=== PATIENT | female | born 1960 | race Caucasian/White ===

== ENCOUNTER 2023-08-27 10:07 | Emergency (ER) | payer BC ==
[2023-08-27 10:53] LABS: Absolute Eosinophils 0.2 K/uL (0-0.5); Absolute Monocytes 0.6 K/uL (0.1-1.3); Basophils % 0.7 % (0-1.3); Eosinophils % 3.2 % (0-4.4); Hematocrit 42.7 % (36.0-45.0); Hemoglobin 14.3 g/dL (12.0-15.0); Lymphocytes % 14.1 % (15.3-44.8); MCH 30.5 pg (27.0-35.0); MCHC 33.5 g/dL (32.0-36.0); MCV 91.1 fL (80-100); MPV 9.4 fL (7.6-11.3); Platelets 301 thou/uL (152-406); RBC Red Blood Cell Count 4.69 M/uL (3.86-4.86); Red Cell Distribution Width 14.1 % (12.1-15.2)
[2023-08-27] MEDS ORDERED: ONDANSETRON 4 MG/2 ML VIAL ONE (11:06)
[2023-08-27 11:42] LABS: ALT/SGPT 15 U/L (13-56); AST/SGOT < 10 U/L (15-37); Albumin 2.7 g/dL (3.4-5.0); Albumin/Globulin Ratio 0.7 (1.1-1.8); Alkaline Phosphatase 57 U/L (45-117); Anion Gap 9.4 mEq/L (5.0-15.0); BUN Blood Urea Nitrogen 11 mg/dL (7-18); Bicarbonate 27 mEq/L (21-32); Bilirubin Total 0.3 mg/dL (0.2-1.0); Globulin 3.8 g/dL (2.3-3.5); Glomerular Filtration Rate 96 ml/min (=/>90); Glucose Level 88 mg/dL (74-106); Lipase 18 U/L (13-75); Potassium 3.4 mEq/L (3.5-5.1); Protein, Total 6.5 g/dL (6.4-8.2); Sodium Level 138 mEq/L (136-145)
[2023-08-27 11:48] LABS: Urine Bacteria 20-50 /HPF (<20); Urine Bilirubin NEGATIVE (Negative); Urine Blood Negative (Negative); Urine Clarity Turbid (Clear); Urine Color Yellow (Yellow); Urine Culture Reflex Order NOT NEEDED; Urine Glucose NEGATIVE (Negative); Urine Ketones 1+ (Negative); Urine Microscopic Reflex YN ORDER UMIC; Urine Mucus 4+ /HPF (None Seen); Urine Nitrite NEGATIVE (Negative); Urine Protein 1+ (Negative); Urine Urobilinogen Normal (Normal)
[2023-08-27 11:49] LABS: Specific Gravity > 1.030 (1.005-1.030)
--- NOTE | 2023-08-27 12:00 | RAD REPORT ---
EXAM DESCRIPTION: CT - Abdomen Pelvis W Contrast - 08/27/2023 10:58 am CLINICAL HISTORY: ABD PAIN COMPARISON: No comparisons TECHNIQUE: Thin cut axial CT imaging of the abdomen and pelvis was performed following intravenous a dministration of 100 mL Isovue 300. Multiplanar reformats were generated and reviewed. All CT scans are performed using dose optimization technique as appropriate and may include automated exposure control or mA/KV adjustment according to patient size. FINDINGS: No suspicious findings in the lung bases. The liver, spleen, adrenal glands, and pancreas show no suspicious findings. Gallbladder and biliary tree are also without suspicious finding. Symmetric renal function is seen with no hydronephrosis or suspicious renal mass. No dilated bowel loops segmental mild wall thickening along the transverse colon the lesser extent th e ascending colon, although suboptimal distention limits evaluation. Mild wall thickening and mucosal hyperenhancement along the distal ileum, reaching the terminal ileum. No free air, free fluid or inf lammatory stranding. No hernia, mass or bulky lymphadenopathy. The urinary bladder is decompressed li miting evaluation. No suspicious bony findings. IMPRESSION: Segmental wall thickening of the proximal colon to the level of the transverse colon. Si milar changes with mild mucosal hyperenhancement of the distal ileum reaching the terminal ileum. Fin dings suggest infectious or inflammatory colitis.
[2023-08-27] MEDS ORDERED: Levofloxacin500mg IV 500 MG/100 ML BAG IV ONE (12:20)
--- NOTE | 2023-08-27 12:46 | ER ---
Nurse's Notes [facility] Name: Yola Gonzalez Age: 63 yrs Sex: Female : 1960 Arrival Date: 08/27/2023 Time: 10:07 Bed 5 Private MD: Diagnosis: Abdominal pain, colitis Presentation: 08/26 10:19 Chief complaint:. Chief complaint: Patient states: Nausea on/off since Thursday. Diarrhea nj1 since Thursday. No vomiting. Able to keep fluids down. Seen by PCP this morning, advised to come to ED for further evaluation and treatment. Coronavirus screen: Vaccine status:. Ebola Screen: Patient denies travel to an Ebola-affected area in the 21 days before illness onset. Initial Sepsis Screen: Does the patient meet any 2 criteria? HR > 90 bpm. No. Patient's initial sepsis screen is negative. Does the patient have a suspected source of infection? No. Patient's initial sepsis screen is negative. Risk Assessment: Do you want to hurt yourself or someone else? Patient reports no desire to harm self or others. Onset of symptoms was August 23, 2023. 10:19 Method Of Arrival: Ambulatory [facility] 10:19 Acuity: HALLIE 3 nj1 Triage Assessment: 10:23 General: Appears in no apparent distress. comfortable, Behavior is calm, cooperative, nj1 appropriate for age. Pain: Complains of pain in abdomen Pain currently is 3 out of 10 on a pain scale. Neuro: Level of Consciousness is awake, alert, obeys commands, Oriented to person, place, time, situation. Cardiovascular: Patient's skin is warm and dry. Respiratory: Airway is patent Respiratory effort is even, unlabored. GI: Reports upper abdominal pain, nausea. Historical: - Allergies: 10:23 No Known Allergies; nj1 - PMHx: 10:23 Hypertension; GERD; lichen sclerosus; nj1 - Immunization history:: Client reports receiving the 2nd dose of the Covid vaccine. - Infectious Disease History:: Denies. - Social history:: Smoking status: Patient denies any tobacco usage or history of. Screenin:55 [facility] ED Fall Risk Assessment (Adult) History of falling in the last 3 months, ko1 including since admission No falls in past 3 months (0 pts) Confusion or Disorientation No (0 pts) Intoxicated or Sedated No (0 pts) Impaired Gait No (0 pts) Mobility Assist Device Used No (0 pt) Altered Elimination No (0 pt) Score/Fall Risk Level 0 - 2 = Low Risk Oriented to surroundings, Maintained a safe environment, Educated pt \T\ family on fall prevention, incl call for assistance when getting out of bed, Assessed \T\ reinforced patient's understanding of fall precautions, Provided non-skid footwear, Hourly rounding (assess needs \T\ fall precautionary measures) done. Abuse screen: Denies threats or abuse. Denies injuries from another. Nutritional screening: No deficits noted. Tuberculosis screening: No symptoms or risk factors identified. Assessment: 10:55 General: Appears in no apparent distress. Behavior is calm, cooperative, appropriate ko1 for age. Pain: Complains of pain in abdomen. Neuro: No deficits noted. Cardiovascular: No deficits noted. Respiratory: No deficits noted. GI: Abdomen is flat, non-distended, Reports upper abdominal pain, nausea, vomiting. : No deficits noted. EENT: No deficits noted. Derm: No deficits noted. Musculoskeletal: No deficits noted. 12:03 Reassessment: Patient and/or family updated on plan of care and expected duration. Pain rs5 level reassessed. Patient is alert, oriented x 3, equal unlabored respirations, skin warm/dry/pink. Patient denies pain at this time. Patient states feeling better. 13:10 Reassessment: Patient and/or family updated on plan of care and expected duration. Pain rs5 level reassessed. Patient is alert, oriented x 3, equal unlabored respirations, skin warm/dry/pink. Patient states feeling better. Vital Signs: 10:19 BP 125 / 87; Pulse 99; Resp 16; Temp 97.9(O); Pulse Ox 100% ; Weight 54.43 kg; Height 5 nj1 ft. 6 in. ; Pain 3/10; 10:53 BP 132 / 71; Pulse 74; Resp 16; Pulse Ox 99% ; ko1 13:05 BP 128 / 77; Pulse 74; Resp 17; Pulse Ox 99% on R/A; rs5 10:19 Body Mass Index 19.37 (54.43 kg, 167.64 cm) [facility] 10:19 Pain Scale: Adult [facility] ED Course: 10:13 Patient arrived in ED. mr 10:20 Aldo Hernández MD is Attending Physician. sp3 10:23 Triage completed. nj1 10:23 Arm band placed on right wrist. nj1 10:36 Inga Becker, RN is Primary Nurse. ko1 10:49 Troponin High Sensitivity Sent. ko1 10:49 CBC with Diff Sent. ko1 10:49 CMP Sent. ko1 10:49 Lipase Sent. ko1 10:53 Patient has correct armband on for positive identification. Placed in gown. Bed in low ko1 position. Call light in reach. Side rails up X2. Provided Education on: labs/tests. 10:53 Initial lab(s) drawn, by me, sent to lab. EKG done, by ED staff, reviewed by Aldo Hernández MD. Inserted saline lock: 20 gauge in right antecubital area, using aseptic technique. Blood collected. 10:55 Client placed on continuous cardiac and pulse oximetry monitoring. NIBP monitoring ko1 applied. conveyor monitor on. Door closed. Noise minimized. Lights dimmed. Warm blanket given. Pillow given. 10:55 No provider procedures requiring assistance completed. ko1 10:58 CT Abd/Pelvis - IV Contrast Only In Process Unspecified. EDMS 13:10 IV discontinued, intact, bleeding controlled, No redness/swelling at site. Pressure rs5 dressing applied. Administered Medications: 11:10 Drug: Ondansetron IVP 4 mg IVP once; over 2 minutes Route: IVP; Site: right antecubital;rs5 11:25 Follow up: Response: No adverse reaction; Nausea is decreased ko1 12:20 Drug: levofloxacin IVPB 500 mg 100 ml IVPB once over 60 mins Volume: 100 ml; Route: nj1 IVPB; Infused Over: 60 mins; Site: right antecubital; 12:40 Follow up: Response: No adverse reaction rs5 Medication: 10:53 VIS not applicable for this client. ko1 Outcome: 12:46 Discharge ordered by . sp3 13:10 Discharged to home ambulatory, rs5 13:10 Condition: stable 13:10 Discharge instructions given to patient, family, Instructed on discharge instructions, follow up and referral plans. medication usage, Demonstrated understanding of instructions, follow-up care, medications, Prescriptions given X 3, 13:12 Patient left the ED. rs5 Signatures: Dispatcher [employer] EDCO Dyan Diaz, Reg Reg mr HernándezAldo MD MD sp3 Inga Becker RN RN ko1 Carlito Wagner RN RN rs5 Lucy Boyce RN RN nj1 Corrections: (The following items were deleted from the chart) 13:25 13:15 Reassessment: Patient and/or family updated on plan of care and expected rs5 duration. Pain level reassessed. Patient is alert, oriented x 3, equal unlabored respirations, skin warm/dry/pink. Patient states feeling better. rs5
--- NOTE | 2023-08-27 12:46 | EDPHYS ---
Physician Documentation [facility] Name: Yola Gonzalez Age: 63 yrs Sex: Female : 1960 Arrival Date: 08/27/2023 Time: 10:07 Bed 5 Private MD: ED Physician Aldo Hernández HPI: 08/26 10:53 This 63 yrs old Female presents to ER via Ambulatory with complaints of Nausea/Vomiting.sp3 10:53 63-year-old female with history of hypertension, GERD, currently on the final phase of sp3 Mounjaro sent by her PCP for epigastric abdominal pain for imaging. Patient states that her symptoms have been epigastric pain and nausea/vomiting for 4 days. She denies any chest pain, shortness of breath, diarrhea, lower abdominal pain, back pain, fever, or any other signs or symptoms on ROS at this time. Patient states she has lost significant weight.. Historical: - Allergies: 10:23 No Known Allergies; nj1 - PMHx: 10:23 Hypertension; GERD; lichen sclerosus; nj1 - Immunization history:: Client reports receiving the 2nd dose of the Covid vaccine. - Infectious Disease History:: Denies. - Social history:: Smoking status: Patient denies any tobacco usage or history of. ROS: 10:54 Constitutional: Negative for fever, chills, and weight loss, Eyes: Negative for injury, sp3 pain, redness, and discharge, ENT: Negative for injury, pain, and discharge, Neck: Negative for injury, pain, and swelling, Cardiovascular: Negative for chest pain, palpitations, and edema, Respiratory: Negative for shortness of breath, cough, wheezing, and pleuritic chest pain, Back: Negative for injury and pain, : Negative for injury, bleeding, discharge, and swelling, MS/Extremity: Negative for injury and deformity, Skin: Negative for injury, rash, and discoloration, Neuro: Negative for headache, weakness, numbness, tingling, and seizure, Psych: Negative for depression, anxiety, suicide ideation, homicidal ideation, and hallucinations, Allergy/Immunology: Negative for hives, rash, and allergies, Endocrine: Negative for neck swelling, polydipsia, polyuria, polyphagia, and marked weight changes, Hematologic/Lymphatic: Negative for swollen nodes, abnormal bleeding, and unusual bruising, 10:54 All other systems are negative, Exam: 10:54 Constitutional: This is a well developed, well nourished patient who is awake, alert, sp3 and in no acute distress. Head/Face: Normocephalic, atraumatic. Eyes: Pupils equal round and reactive to light, extra-ocular motions intact. Lids and lashes normal. Conjunctiva and sclera are non-icteric and not injected. Cornea within normal limits. Periorbital areas with no swelling, redness, or edema. ENT: Nares patent. No nasal discharge, no septal abnormalities noted. External auditory canals are clear. Oropharynx with no redness, swelling, or masses, exudates, or evidence of obstruction, uvula midline. Mucous membranes moist. Neck: Trachea midline, no thyromegaly or masses palpated, and no cervical lymphadenopathy. Supple, full range of motion without nuchal rigidity, or vertebral point tenderness. No Meningismus. Chest/axilla: Normal chest wall appearance and motion. Nontender with no deformity. No lesions are appreciated. Cardiovascular: Regular rate and rhythm with a normal S1 and S2. No gallops, murmurs, or rubs. Normal PMI, no JVD. No pulse deficits. Respiratory: Lungs have equal breath sounds bilaterally, clear to auscultation and percussion. No rales, rhonchi or wheezes noted. No increased work of breathing, no retractions or nasal flaring. Back: No spinal tenderness. No costovertebral tenderness. Full range of motion. Skin: Warm, dry with normal turgor. Normal color with no rashes, no lesions, and no evidence of cellulitis. MS/ Extremity: Pulses equal, no cyanosis. Neurovascular intact. Full, normal range of motion. Neuro: Awake and alert, GCS 15, oriented to person, place, time, and situation. Cranial nerves II-XII grossly intact. Motor strength 5/5 in all extremities. Sensory grossly intact. Cerebellar exam normal. Normal gait. Psych: Awake, alert, with orientation to person, place and time. Behavior, mood, and affect are within normal limits. 10:54 Abdomen/GI: Epigastric pain to palpation without peritoneal signs, rebound or guarding., 11:12 ECG was reviewed by the Attending Physician. EKG demonstrates normal sinus rhythm at 83 sp3 bpm with normal intervals, normal QRS, normal axis, normal ST/T segments without evidence of acute ischemia. Vital Signs: 10:19 BP 125 / 87; Pulse 99; Resp 16; Temp 97.9(O); Pulse Ox 100% ; Weight 54.43 kg; Height 5 nj1 ft. 6 in. ; Pain 3/10; 10:53 BP 132 / 71; Pulse 74; Resp 16; Pulse Ox 99% ; ko1 13:05 BP 128 / 77; Pulse 74; Resp 17; Pulse Ox 99% on R/A; rs5 10:19 Body Mass Index 19.37 (54.43 kg, 167.64 cm) nj1 10:19 Pain Scale: Adult nj1 MDM: 10:25 Patient medically screened. sp3 10:54 Data reviewed: vital signs, nurses notes, lab test result(s), EKG, radiologic studies. sp3 ED course: 63-year-old female with epigastric pain on Mounjaro. Differential diagnosis is broad and includes gastritis, colitis, biliary pathology including cholecystitis, cholelithiasis, biliary colic, pancreatitis, choledocholithiasis, among others. I am not highly suspicious for acute coronary syndrome, vascular pathology including aorta, HOT BREAD BAKER pathology, pathology or any other critical process including sepsis and shock. Workup will include CT scan of the abdomen pelvis, laboratory values, EKG and general supportive care. Ondansetron IV for nausea control. Disposition pending workup and patient course.. 12:45 ED course: Laboratory values within normal limits. CT demonstrates colitis ascending sp3 portion. Will put on antibiotics and have patient follow-up with PCP.. 08/26 10:33 Order name: CBC with Diff; Complete Time: 11:51 08/26 10:33 Order name: CMP; Complete Time: 11:51 08/26 10:33 Order name: Lipase; Complete Time: 11:51 3 08/26 10:33 Order name: Urinalysis w/ reflexes; Complete Time: 11:51 3 08/26 10:33 Order name: Troponin High Sensitivity; Complete Time: 11:51 08/26 10:33 Order name: CT Abd/Pelvis - IV Contrast Only; Complete Time: 12:17 08/26 10:33 Order name: EKG; Complete Time: 10:33 3 08/26 10:33 Order name: IV Saline Lock; Complete Time: 10:49 sp3 08/26 10:33 Order name: Labs collected and sent; Complete Time: 10:49 sp3 08/26 10:33 Order name: EKG - Nurse/Tech; Complete Time: 10:53 sp3 08/26 10:58 Order name: Labs - recollect needed: recollect green top please; Complete Time: 11:27 em1 Administered Medications: 11:10 Drug: Ondansetron IVP 4 mg IVP once; over 2 minutes Route: IVP; Site: right antecubital;rs5 11:25 Follow up: Response: No adverse reaction; Nausea is decreased ko1 12:20 Drug: levofloxacin IVPB 500 mg 100 ml IVPB once over 60 mins Volume: 100 ml; Route: nj1 IVPB; Infused Over: 60 mins; Site: right antecubital; 12:40 Follow up: Response: No adverse reaction rs5 Disposition Summary: 08/27/23 12:46 Discharge Ordered Notes: Location: Home sp3 Condition: Stable sp3 Diagnosis - Abdominal pain, colitis sp3 Followup: sp3 - With: Private Physician - When: Upon discharge from the Emergency Department - Reason: Continuance of care Discharge Instructions: - Discharge Summary Sheet sp3 - Colitis sp3 Forms: - Medication Reconciliation Form sp3 - Antibiotic Education sp3 - Prescription Opioid Use sp3 - Patient Portal Instructions sp3 - Leadership Thank You Letter sp3 Prescriptions: - Flagyl 500 mg Oral Tablet - take 1 tablet ORAL route every 8 hours for 10 days; 30 tablet; Refills: 0, sp3 Product Selection Permitted - Tramadol 50 mg Oral Tablet - take 1 tablet ORAL route every 8 hours as needed; 12 tablet; Refills: 0, sp3 Product Selection Permitted - levofloxacin 500 mg Oral tablet - take 1 tablet ORAL route once daily for 7 days; 7 tablet; Refills: 0, Product sp3 Selection Permitted Signatures: Dispatcher [employer] Feroz Alvarez em1 Aldo Hernández MD MD sp3 Carlito Wagner RN RN rs5 Lucy Boyce RN RN nj1 Inga Becker RN ko1 Corrections: (The following items were deleted from the chart) 10:33 10:33 CBC+H.LAB.BRZ ordered. EDMS EDMS 10:33 10:33 COMPREHENSIVE METABOLIC PANEL+C.LAB.BRZ ordered. EDMS EDMS 10:33 10:33 LIPASE+C.LAB.BRZ ordered. EDMS EDMS 10:33 10:33 Urinalysis+U.LAB.BRZ ordered. EDMS EDMS 10:33 10:33 Troponin High Sensitivity+C.LAB.BRZ ordered. EDMS EDMS
[2023-08-27 13:38] VITALS: BP 132/71; TEMP 97.9; O2SAT 99
--- NOTE | 2023-08-30 13:34 | EKG ---
Test Date: 2023-08-27 Test Time: 10:51:36 [employer] Mdm Developer: CHRISTIANO MEASUREMENT RESULTS: Intervals: Rate: 83 SC: 132 QRSD: 76 QT: 364 QTc: 427 Galliano: P: 87 SC: 132 QRS: 72 T: 67 INTERPRETIVE STATEMENTS: Normal sinus rhythm Possible Left atrial enlargement Borderline ECG No previous ECG available for comparison Electronically Signed On 08-30-23 13:28:33 CDT by Anuel Diallo
== END 2023-08-27 13:12 | disposition home or self-care (01) ==
LOC: ER 10:07
DX: K52.9 Noninfective gastroenteritis and colitis, unspecified (principal); K21.9 Gastro-esophageal reflux disease without esophagitis; I10 Essential (primary) hypertension
CPT/HCPCS: 85025; 81001; 36415; 84484; 83690; 80053; 74177; 96375; 96374; 99285; Q9967; J2405; 93005